=== PATIENT | male | born 1960 | race Caucasian/White ===

== ENCOUNTER 2021-10-27 14:48 | Emergency (ER) | payer OTHER, SELFPAY ==
[2021-10-27 14:49] VITALS: BP 168/86; PULSE 107; RESP 18; TEMP 35.7; O2SAT 100; BMI 27.7
--- NOTE | 2021-10-27 15:00 | EKG12_ITS ---
Test Reason : AB LABS Blood Pressure : / mmHG Vent. Rate : 099 BPM Atrial Rate : 099 BPM P-R Int : 158 ms QRS Dur : 080 ms QT Int : 350 ms P-R-T Axes : 049 -24 078 degrees QTc Int : 449 ms Normal sinus rhythm Normal ECG Confirmed by KIKI QUISPE, SON ([id number]), health editor MANNIE RICO ([id number]) on 10/28/2021 1:59:19 PM Referred By: Confirmed By:SON SWANSON MD
--- NOTE | 2021-10-27 15:05 | EX.ED.DYSGE1 ---
HPI History of Present Illness Chief Complaint: Abn Labs Informant: patient and spouse/S.O. Narrative Narrative: [facility] been drawn yesterday for elevated potassium. Reports potassium 5.1 creatinine 1.7. Denies any recent vomiting or diarrhea. Denies heart racing or palpitations or lightheaded symptoms. He states he does drink water however drinks a lot of coffee and pees a lot. Hypertension, diabetes, hyperlipidemia. No cardiac history. This was routine labs drawn yesterday. Prior similar symptoms: No PFSH PFSH Medical History Alcohol abuse Anxiety Depression Diabetes Nicotine dependence PTSD (post-traumatic stress disorder) Sleep apnea Home Medications insulin glargine 100 unit/mL subcutaneous solution (Lantus U-100 Insulin) 24 unit SQ DAILY 12/14/16 [History Last Taken 12/14/16] lisinopril 10 mg-hydrochlorothiazide 12.5 mg tablet (Zestoretic) 1 tab PO DAILY ##14 12/14/16 [Rx Last Taken Unknown] lisinopril 5 mg tablet (Prinivil) 5 mg PO DAILY 12/14/16 [History Last Taken 12/14/16] metformin 1,000 mg 24 hr tablet,extended release 1,000 mg PO DAILY 12/14/16 [History Last Taken 12/14/16] amlodipine 5 mg tablet 5 mg PO DAILY #30 tabs 10/27/21 [Rx Last Taken Unknown] Allergy/AdvReac Type Severity Reaction Status Date / Time No Known Allergies Allergy Verified 10/27/21 14:50 Social History Smoking Status: Never smoker ROS ROS ED Constitutional Constitutional ED: Denies chills, fever(s) or sweats Eyes Eyes: Denies change in vision ENT ENT ED: Denies dysphagia or sore throat Cardiovascular Cardiovascular: Denies chest pain, leg edema, palpitations or racing heartbeat Respiratory/Chest Respiratory/Chest: Denies cough, dyspnea or dyspnea on exertion Gastrointestinal Gastrointestinal: Denies abdominal pain, diarrhea, nausea or vomiting Genitourinary Genitourinary ED: Denies dysuria, hematuria or urinary frequency Musculoskeletal Musculoskeletal: Denies back pain, extremity pain or neck pain Integumentary Denies rash or wounds Neurologic Neurologic: Denies headache(s), paresthesias or weakness EXAM Physical Exam Const Vital Signs: 10/27/21 14:49 10/27/21 14:53 10/27/21 15:31 Temperature 96.3 F L Temperature Source Temporal Pulse Rate 107 H 76 Respiratory Rate 18 15 Respiratory Effort Normal Respiratory Pattern Normal Blood Pressure 168/86 H Blood Pressure Mean 113 Pulse Ox 100 98 Oxygen Delivery Method Room Air Room Air 10/27/21 16:00 Temperature Temperature Source Pulse Rate 89 Respiratory Rate 15 Respiratory Effort Respiratory Pattern Blood Pressure 145/74 H Blood Pressure Mean Pulse Ox 99 Oxygen Delivery Method Positive well nourished and well developed General Appearance ED: well developed and NAD HEENT Reports dry mucous membranes normocephalic and atraumatic Mouth ED: Yes dry mucous membranes Mouth: dry mucous membranes Eyes PERRL, EOMs intact bilaterally and conjunctivae normal General Eye ED: Yes normal appearance of both eyes Neck no lymphadenopathy and supple General: Negative for tenderness Chest Wall Chest: Negative for tenderness Resp normal respiratory effort and normal air movement Effort and Inspection: symmetric chest movement; Negative for respiratory distress Cardio regular rate, regular rhythm and no murmurs Peripheral Pulses: pulses 2+ throughout GI normal to inspection, nondistended, normoactive bowel sounds and non-tender Palpation: Negative for guarding or rebound tenderness present Back/Spine no CVA tenderness and no thoracic nor lumbar tenderness Extremity normal to inspection General Extremety ED: Negative for edema or tenderness General Extremity: Negative for edema Neuro oriented x3 and no sensory deficits noted Sensorium / Orientation: awake and alert Skin no rashes or lesions noted and no wounds MDM MDM MDM Narrative Medical decision making narrative: EKG with no signs of hyperkalemia. He is asymptomatic. Labs potassium 4.6 creatinine is 1.64 up from 03.13 2017. No old for comparison. He is on lisinopril hydrochlorothiazide. Blood pressure is elevated. He will hold his lisinopril hydrochlorothiazide I wrote for amlodipine for him to take for his blood pressure follow-up with the [place] doctor for recheck for labs as an outpatient. All questions were answered. Lab Data Attestation: I reviewed the patient's lab results. Labs: Laboratory Results - last 24 hr 10/27/21 10/27/21 15:15 15:15 WBC 6.1 RBC 5.56 Hgb 16.6 H Hct 48.5 MCV 87.2 MCH 29.9 MCHC 34.2 RDW Std Deviation 39.6 RDW Coeff of Tavo 12.4 Plt Count 212 MPV 9.6 Immature Gran % (Auto) 0.800 Neut % (Auto) 63.3 Lymph % (Auto) 27.1 [place] % (Auto) 7.6 Eos % (Auto) 0.7 Baso % (Auto) 0.5 Absolute Neuts (auto) 3.8 Absolute Lymphs (auto) 1.64 Nucleated RBC % 0 Sodium 136 Potassium 4.6 Chloride 104 Carbon Dioxide 22.0 Anion Gap 10 BUN 28 H Creatinine 1.64 H Estim Creat Clear Calc 42.68 Est GFR (MDRD) Af Amer 55 L Est GFR (MDRD) Non-Af 46 L BUN/Creatinine Ratio 17.1 Glucose 196 H Calcium 9.3 EKG Initial EKG: Attestation: I personally reviewed and interpreted this EKG as follows: Comments: Sinus rate of 99, no ST changes isolated T wave version in aVL. No change for concerns of hyperkalemia. Discharge Plan Triage Chief Complaint: Abn Labs ED Provider: Jude Baird Dx/Rx/DC Orders Clinical Impression: Mild renal insufficiency, History of hypertension, Abnormal laboratory test Instructions: ED Renal Insufficiency Prescriptions: New amlodipine 5 mg tablet 5 mg PO DAILY Qty: 30 0RF No Action lisinopril [Prinivil] 5 MG tablet 5 mg PO DAILY insulin glargine [Lantus U-100 Insulin] 100 UNIT/ML solution 24 unit SQ DAILY metformin 1,000 MG tablet,ER kirk.retention 24 hr 1,000 mg PO DAILY lisinopril-hydrochlorothiazide [Zestoretic] 1 TABLET tablet 1 tab PO DAILY Qty: 14 0RF Primary Care Provider: [facility] Referrals: [facility] [Primary Care Provider] - 3-5 Days Activity Restrictions/Additional Instructions: Your creatinine is 1.64 today. You were given IV fluids. Your last creatinine was 1.28 that was back in 2017. Decrease your coffee intake as this will cause you to urinate more and lose fluids. Your potassium is 4.6 on recheck. Potassium is normal range. Hold your lisinopril hydrochlorothiazide start amlodipine. Follow-up with your doctor. Disposition Disposition: Home, Self Care Discharge Date/Time: 10/27/21 16:02
[2021-10-27 15:22] LABS: Absolute Lymphocyte Count 1.64 X10^3/uL (0.83-4.51); Absolute Neutrophil Count 3.8 X10^3/uL (2.0-7.7); Basophil# 0.03 X10^3/uL; Basophil% 0.5 % (0-1); Eosinophil# 0.04 X10^3/uL; Eosinophils% 0.7 % (0-5); Hematocrit 48.5 % (40-54); Hemoglobin 16.6 g/dL (13.0-16.5); Lymphocyte # 1.64 X10^3/ul (0.83-4.51); Lymphocyte % 27.1 % (19-41); Mean Corp Hgb Conc 34.2 g/dL (32-36); Mean Corpuscular Hgb 29.9 pg (27.0-32.0); Mean Corpuscular Volume 87.2 fL (80-94); Mean Platelet Vol. 9.6 fl (6.2-12.0); Monocyte# 0.46 X10^3/uL; Monocyte% 7.6 % (0-10); NRBC Flagged by Analyzer 0 % (0-5); Neutrophil # 3.84 X10^3/uL (2.7-7.7); Neutrophil % 63.3 % (47-70); Platelet Count 212 K/mm3 (150-450); RBC Distribution Width CV 12.4 % (11.6-14.6); RBC Distribution Width SD 39.6 fl (35.1-43.9); Red Blood Count 5.56 M/mm3 (4.6-6.2); White Blood Count 6.1 K/mm3 (4.4-11.0)
[2021-10-27] MEDS: 0.9% Normal Saline 1,000 ML 999 ML IV (15:29)
[2021-10-27 15:31] VITALS: PULSE 76; RESP 15; O2SAT 98
[2021-10-27 15:38] LABS: Anion Gap 10 (5-15); BUN 28 mg/dL (7-18); BUN/Creat Ratio 17.1 RATIO (10-20); Calcium,Total 9.3 mg/dL (8.5-10.1); Chloride 104 mmol/L (98-107); Creatinine, Serum 1.64 mg/dL (0.70-1.30); EST Glomerular Filtration Rate 46 mL/min (>60); Est Glom Filt Rate - Afr Amer 55 mL/min (>60); Estimated Creatinine Clearance 42.68 ml/min; Glucose 196 mg/dL (74-106); Potassium 4.6 mmol/L (3.5-5.1); Sodium Level 136 mmol/L (136-145)
[2021-10-27 16:00] VITALS: BP 145/74; PULSE 89; RESP 15; O2SAT 99
== END 2021-10-27 16:02 | disposition home or self-care (01) ==
PROVIDERS: Emergency Provider Emergency Medicine; Visit Provider Emergency Medicine
DX: N28.9 Disorder of kidney and ureter, unspecified (principal); E11.9 Type 2 diabetes mellitus without complications; I10 Essential (primary) hypertension; E78.5 Hyperlipidemia, unspecified; R79.9 Abnormal finding of blood chemistry, unspecified
CPT/HCPCS: 80048; 85025; 93005; 99284; J7030